=== PATIENT | male | born 1980 | race Caucasian/White ===

== ENCOUNTER 2021-09-27 17:25 | Emergency (ER) | payer OTHER, SELFPAY ==
[2021-09-27 17:26] VITALS: BP 143/100; PULSE 90; RESP 18; TEMP 36.1; O2SAT 98; BMI 55.3
--- NOTE | 2021-09-27 18:08 | CT_ITS ---
EXAM: CT HEAD WITHOUT AND WITH INTRAVENOUS CONTRAST CLINICAL INDICATION: facial droop -- family history aneurysm TECHNIQUE: Multiple axial images were obtained of the head without and with intravenous contrast. This CT exam was performed using one or more of the following dose reduction techniques: automated exposure control, adjustment of the mA and/or kV according to patient size, and/or use of iterative reconstruction technique. This report was created using [employer] report generation technology. CONTRAST: IV 100mL [id number]-[id number] COMPARISON: None. FINDINGS: BRAIN AND EXTRA-AXIAL SPACES: Unremarkable. No intra- or extra-axial hemorrhage. No evidence of acute infarct. No intracranial mass or mass effect. There is preservation of the barakat/white matter interface. Posterior fossa structures are unremarkable. Ventricles are appropriate for age. No hydrocephalus. Basal cisterns are patent. BONES/JOINTS: Unremarkable. No discrete lytic or blastic abnormalities. SINUSES: Unremarkable as visualized. Clear. MASTOID AIR CELLS: Unremarkable. Clear. ORBITS: Visualized globes, extraocular muscles, optic nerves and retrobulbar fat appear unremarkable. CT/CTA Head W/WO Contrast IMPRESSION: Negative head/brain CT without and with intravenous contrast. Electronically Signed: Jose Ramon Higgins MD at 19:09 EST , Service support ,
--- NOTE | 2021-09-27 18:09 | EX.ED.DYSGE1 ---
HPI History of Present Illness Chief Complaint: Numb/Ting Informant: patient and spouse/S.O. Onset/Context/Timing Onset: Days (3 days) Context: Gradual Onset Current Severity: Moderate Maximum Severity: Moderate Narrative Narrative: Patient presents with numbness and tingling to his tongue and now to his lips over the past 3 days. states she noticed that patient cannot close his right eye. Patient denies headache or vision change. He does note that his right eye is dry when he gets up in the morning. Primary concern is the patient's father of a brain aneurysm at the age of 37. PFSH PFS Medical History no medical history no medical history Home Medications acyclovir 1 tab PO 5X/DAY #35 tab 09/27/21 [Rx Last Taken Unknown] prednisone See Taper PO DAILY #63 tab 09/27/21 [Rx Last Taken Unknown] Allergy/AdvReac Type Severity Reaction Status Date / Time No Known Allergies Allergy Verified 09/27/21 17:27 Family History (Updated 09/27/21 @ 18:[address] Karolyn Arreola MD) Other Brain aneurysm Social History Smoking Status: Never smoker ROS ROS ED Constitutional Constitutional ED: Denies chills or fever(s) Eyes Eyes: Denies change in vision ENT ENT ED: Denies sore throat Cardiovascular Cardiovascular: Denies chest pain Respiratory/Chest Respiratory/Chest: Denies cough or dyspnea Gastrointestinal Gastrointestinal: Denies abdominal pain, diarrhea, nausea or vomiting Musculoskeletal Musculoskeletal: Denies neck pain Integumentary Denies rash Neurologic Neurologic: Reports paresthesias and weakness; Denies headache(s) Allergic/Immunologic Allergic/Immunologic ED: Denies urticaria EXAM Physical Exam Const Vital Signs: 09/27/21 17:26 Temperature 97 F L Temperature Source Temporal Pulse Rate 90 Respiratory Rate 18 Blood Pressure 143/100 H Blood Pressure Mean 114 Pulse Ox 98 Oxygen Delivery Method Room Air Positive well nourished and well developed General Appearance ED: well developed HEENT Reports normocephalic, head/scalp atraumatic and moist mucous membranes HEENT Narrative: Right-sided facial droop. Unable to wrinkle right side of forehead. Unable to raise eyebrow on the right. Negative for trauma Eyes PERRL and EOMs intact bilaterally Eyes Narrative: Unable to close right eye. Neck supple Chest Wall inspection of chest normal and palpation of chest normal Resp normal respiratory effort and clear to auscultation bilaterally Cardio regular rate and regular rhythm GI normal to inspection, nondistended, normoactive bowel sounds and non-tender Palpation: soft Extremity normal to inspection Neuro oriented x3 Neuro Narrative: Right-sided facial weakness with paresthesias. 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 However, because the patient's father passed from a brain aneurysm at an early age we will pursue CTA. Lab work obtained. Lab Data Attestation: I reviewed the patient's lab results. Labs: Laboratory Results - last 24 hr 09/27/21 09/27/21 18:26 18:26 WBC 7.8 RBC 5.72 Hgb 15.8 Hct 47.9 MCV 83.7 MCH 27.6 MCHC 33.0 RDW Std Deviation 41.8 RDW Coeff of Yifan 13.7 Plt Count 232 MPV 9.0 Immature Gran % (Auto) 0.600 Neut % (Auto) 62.1 Lymph % (Auto) 24.5 Kimble % (Auto) 11.0 H Eos % (Auto) 1.3 Baso % (Auto) 0.5 Absolute Neuts (auto) 4.8 Absolute Lymphs (auto) 1.90 Nucleated RBC % 0 Sodium 139 Potassium 3.9 Chloride 105 Carbon Dioxide 28.0 Anion Gap 6 BUN 13 Creatinine 0.90 Estim Creat Clear Calc 109.27 Est GFR (MDRD) Af Amer 118 Est GFR (MDRD) Non-Af 97 BUN/Creatinine Ratio 14.4 Glucose 86 Calcium 8.9 Radiography Diagnostic Testing: Clinical Impression(s) from Imaging Studies Head CTA 09/27/21 18:08 IMPRESSION: Negative head/brain CT without and with intravenous contrast. Electronically Signed: Jose Ramon Higgins MD at 19:09 EST , Service support , Treatment and Re-Evaluation Comments:: Lab work unremarkable. CTA reveals no acute findings. Patient be treated with prednisone and acyclovir. Instructions for Staton's palsy given. Return instructions provided. Discharge Plan Triage Chief Complaint: Numb/Ting ED Provider: Karolyn Arreola Dx/Rx/DC Orders Clinical Impression: Staton's palsy Instructions: ED Staton's Palsy Prescriptions: New prednisone 10 mg tablet See Taper mg PO DAILY Qty: 63 RF: 0 acyclovir 400 mg tablet 1 tab PO 5X/DAY Qty: 35 RF: 0 Primary Care Provider: Marito Hargrove NP Referrals: Marito Hargrove NP, [facility] [Primary Care Provider] - 1-2 Weeks Disposition Disposition: Home, Self Care
[2021-09-27 18:34] LABS: Absolute Neutrophil Count 4.8 X10^3/uL (2.0-7.7); Basophil# 0.04 X10^3/uL; Basophil% 0.5 % (0-1); Eosinophils% 1.3 % (0-5); Hematocrit 47.9 % (40-54); Hemoglobin 15.8 g/dL (13.0-16.5); Lymphocyte % 24.5 % (19-41); Mean Corpuscular Hgb 27.6 pg (27.0-32.0); Mean Corpuscular Volume 83.7 fL (80-94); Monocyte# 0.85 X10^3/uL; NRBC Flagged by Analyzer 0 % (0-5); Neutrophil # 4.81 X10^3/uL (2.7-7.7); Neutrophil % 62.1 % (47-70); Platelet Count 232 K/mm3 (150-450); RBC Distribution Width CV 13.7 % (11.6-14.6); RBC Distribution Width SD 41.8 fl (35.1-43.9); Red Blood Count 5.72 M/mm3 (4.6-6.2); White Blood Count 7.8 K/mm3 (4.4-11.0)
[2021-09-27 18:47] LABS: Anion Gap 6 (5-15); BUN 13 mg/dL (7-18); BUN/Creat Ratio 14.4 RATIO (10-20); Calcium,Total 8.9 mg/dL (8.5-10.1); Chloride 105 mmol/L (98-107); EST Glomerular Filtration Rate 97 mL/min (>60); Est Glom Filt Rate - Afr Amer 118 mL/min (>60); Estimated Creatinine Clearance 109.27 ml/min; Glucose 86 mg/dL (74-106); Potassium 3.9 mmol/L (3.5-5.1); Sodium Level 139 mmol/L (136-145)
[2021-09-27] MEDS: Acyclovir 200 MG Capsule 400 MG PO (20:37)
[2021-09-27] MEDS: predniSONE 20 MG Tablet 60 MG PO (20:37)
== END 2021-09-27 20:48 | disposition home or self-care (01) ==
PROVIDERS: Emergency Provider Emergency Medicine; PCP Nurse Practitioner Family; Visit Provider Emergency Medicine
DX: G51.0 Bell's palsy (principal)
CPT/HCPCS: 70496; 80048; 85025; 99284; Q9967; A4216